=== PATIENT | female | born 1980 | race Caucasian/White ===

== ENCOUNTER 2024-02-23 09:13 | Outpatient (CLI) | payer OTHER ==
[2024-02-22 23:27] VITALS: BP 140/90
[~2024-02-23] VITALS: Ht 152.4 cm; Wt 63.0 kg
[2024-02-23 01:47] VITALS: BP 142/94
[2024-02-23] MEDS ORDERED: XANAX1 MG (10:04)
[2024-02-23] MEDS ORDERED: PRENATAL TABLE1 EAC4 (10:05)
[2024-02-23] MEDS ORDERED: LUNESTA1 MG (10:05)
[2024-02-23] MEDS ORDERED: IRON236 MG (10:06)
== END 2024-02-23 09:21 | disposition left against medical advice (07) ==
LOC: OBS/DEL 09:13
PROVIDERS: ATTEND Obstetrics & Gynecology
DX: O26.893 Other specified pregnancy related conditions, third trimester (principal); Z3A.38 38 weeks gestation of pregnancy

== ENCOUNTER → 2024-03-05 | Emergency (ER) | payer OTHER ==
[~2024-03-05] VITALS: Ht 160 cm; Wt 59.0 kg
[~2024-03-05] MED LIST: IRON236 MG; LUNESTA1 MG; PRENATAL TABLE1 EAC4; XANAX1 MG
== END | disposition left against medical advice (07) ==
LOC: ER 22:46
DX: S89.80XA Other specified injuries of unspecified lower leg, initial encounter (principal); V49.88XA Car occupant (driver) (passenger) injured in other specified transport accidents, initial encounter; Y93.89 Activity, other specified; Y92.89 Other specified places as the place of occurrence of the external cause; Y99.8 Other external cause status; R51.9 Headache, unspecified